=== PATIENT | female | born 1990 | race Caucasian/White ===

== ENCOUNTER 2017-03-04 12:47 | Inpatient (IN) | payer SELFPAY ==
[~2017-03-04] VITALS: Ht 165.1 cm; Wt 60.7 kg
[~2017-03-04 12:47] MED LIST: CALC-173 PO; IBUP-1222 PO; OXYC-302 PO; PREN1TAB60 PO
[2017-03-04] MEDS ORDERED: SODIUM CHLORIDE 0.9% 1,000 ML IV ONE ×2 (13:07→14:23)
[2017-03-04] MEDS ORDERED: ONDANSETRON 2MG/ML, 2ML ONE (13:16)
[2017-03-04] MEDS ORDERED: PANTOPRAZOLE 40 MG IV ONE (13:16)
[2017-03-04] MEDS ORDERED: LORazepam 2 MG/ML, 1ML ONE (13:16)
[2017-03-04] MEDS ORDERED: PANTOPRAZOLE 40 MG IV IVP ONE (13:30)
[2017-03-04] MEDS ORDERED: SODIUM CHLORIDE FLUSH 10ML SYR IVF ONE (13:30)
[2017-03-04] MEDS ORDERED: ONDANSETRON 2MG/ML, 2ML IVPush ONE (13:30)
[2017-03-04] MEDS ORDERED: SODIUM CHLORIDE 0.9% 1,000ML IVBOLUS ONE (13:30)
[2017-03-04] MEDS ORDERED: LORazepam 2 MG/ML, 1ML IVPush ONE (13:30)
[2017-03-04 13:38] LABS: DAU SCREEN DISCLAIMER
[2017-03-04 13:42] LABS: ASPARTATE AMINO TRANSFERASE 374 U/L (15-37); BLOOD UREA NITROGEN 3 mg/dL (7-18)
[2017-03-04] MEDS ORDERED: SODIUM CHLORIDE FLUSH 10ML SYR IVF PRN (14:30)
[2017-03-04 15:20] VITALS: BP 110/75
[2017-03-04] MEDS ORDERED: NICOTINE 21 MG/24 HR PATCH.TD24 TD SCH (17:00)
[2017-03-04] MEDS ORDERED: LORazepam 1MG TABLET PO PRN ×4 (17:00)
[2017-03-04] MEDS ORDERED: LORazepam 0.5MG TABLET PO PRN (17:00)
[2017-03-04] MEDS ORDERED: LORazepam 2 MG/ML, 1ML IV PRN ×5 (17:00)
[2017-03-04] MEDS ORDERED: THIAMINE 100 MG, MVI ADULT 10 ML, FOLIC ACID 1 MG in D5%-0.9% NACL 1,000 ML IV SCH (17:00)
[2017-03-04] MEDS ORDERED: POLYETHYLENE GLYCOL 17 GM PACKET PO PRN (17:00)
[2017-03-04] MEDS ORDERED: ENOXAPARIN 40 MG/0.4 ML SQ SCH (17:00)
[2017-03-04] MEDS ORDERED: BISACODYL 10 MG SUPP PR PRN (17:00)
[2017-03-04] MEDS ORDERED: DOCUSATE 100 MG CAPSULE PO PRN (17:00)
[2017-03-04] MEDS ORDERED: PROMETHAZINE 25 MG/ML, 1ML IM PRN (17:00)
[2017-03-04] MEDS ORDERED: ONDANSETRON 2MG/ML, 2ML IVPush PRN (17:00)
[2017-03-04] MEDS: SODIUM CHLORIDE 0.9% 1,000 ML IV SCH (17:13)
[2017-03-04 19:45] VITALS: BP 119/76
[2017-03-04] MEDS: CHLORDIAZEPOXIDE 10 MG CAPSULE PO SCH (21:51)
[2017-03-05] MEDS: SODIUM CHLORIDE 0.9% 1,000 ML IV SCH ×2 (00:42→08:02)
[2017-03-05 02:55] VITALS: BP 130/90
[2017-03-05 05:24] LABS: ASPARTATE AMINO TRANSFERASE 220 U/L (15-37); BLOOD UREA NITROGEN 4 mg/dL (7-18); TOTAL IRON BINDING CAPACITY 345 mcg/dL (250-450)
[2017-03-05] MEDS ORDERED: MAGNESIUM SULFATE PMX 4GM/100M 100 ML IV ONE (07:00)
[2017-03-05 07:13] VITALS: BP 135/94
[2017-03-05 08:13] LABS: HEPATITIS C VIRUS ANTIBODY Nonreactive (Nonreactive)
[2017-03-05] MEDS ORDERED: MAGNESIUM OXIDE 400 MG TABLET PO SCH (09:00)
[2017-03-05] MEDS: CHLORDIAZEPOXIDE 10 MG CAPSULE PO SCH (09:41)
== END 2017-03-05 11:20 | disposition left against medical advice (07) | DRG 894 ==
LOC: ED 13:39 → EDIP 14:52 → 3NW 15:31
PROVIDERS: ADMIT Internal Medicine; ATTEND Internal Medicine
DX: F10.221 Alcohol dependence with intoxication delirium (principal); F17.210 Nicotine dependence, cigarettes, uncomplicated; K70.10 Alcoholic hepatitis without ascites; E83.42 Hypomagnesemia; E86.0 Dehydration; Z53.21 Procedure and treatment not carried out due to patient leaving prior to being seen by health care provider; Z82.49 Family history of ischemic heart disease and other diseases of the circulatory system
CPT/HCPCS: 36415; 76700; 80053; 80074; 80307; 81001; 82140; 82550; 83540; 83550; 83605; 83690; 83735; 84100; 84443; 84703; 85025; 87324; 96361; 96374; 96375; J1650; J2405; J3411; J7042; C9113; J2060; J3475; J7030